=== PATIENT | female | born 1990 | race American Indian/Alaskan Native ===

== ENCOUNTER 2018-09-17 10:41 | Emergency (ER) | payer MEDICAID ==
[2017-12-04 14:50] VITALS: BMI 26.6
--- NOTE | 2018-09-17 12:00 | OBHP ---
Datetime: 09/17/2018 11:43 IP Adm Impression: , intrauterine IP Admit Plan: Discharge home Admit Comment, IP Provider: HPI: Gianna is a 28 year old at 34.2 weeks here for complaint s of 2 episodes of fluid leaking from the vagina over the last 2 weeks as well as 2 months of mild, c onsistent lower pelvic pain. Patient reports noticing her underwear felt wet after sitting down twice in the last 2 weeks, denies gushes of fluid or fluid leaking down her legs. No vaginal bleeding or c ontractions. Denies any complications with this . History 1 previous at term, no complications PMH Mild intermittent asthma PSH Exploratory laparoscopy Medications Albuterol PRN PNV Allergies NKDA Social Denies tobacco, alcohol or drug use during this Family History Not significant OBJECTIVE Vitals reviewed ASSESSMENT/PLAN: 28 year old at 34.2 here for rule out PROM. SSE was unremarkable with no evidence of membranes rupture. Cervical os appeared closed on exam. NST was reactive. Patient is andi red for discharge at this time. She has follow-up next week with Dr. Kerr. Return precautions dis cussed. Patient in agreement with discharge plan. Britney Reinoso MD OB Fellow OB Hospitalist Addendum: Pt seen by me. Agree w/ above. 28 yo at 34+2 wks w/ c/o leaking of fluid. On exam: pt appears comfortable lying in stretcher. Spec: white d/c, nitrazine negative. NST reactive. Pt discharged home w/ PTL precautions. Pt to f/u w/ Dr. Garcia in 2-3 days. (ES) Lungs - PN: Normal Heart - PN: Normal Neurologic - PN: Normal HEENT - PN: Normal IP Fetus A Comments: Reactive NST FHR - Baseline A Provider: 130 Comments, ACOG Physical Exam: SSE: cervical os closed on visual inspection, no pooling or leaking of fluid on Valsalva. Nitrazine neg Gestation - Est Wks by US: 34.2 EGA AdmitDate IP: 34.2 Vital Signs Provider: Reviewed; Within Normal Limits IP Chief Complaint: Suspected ruptured membranes NICHD Variability Prov Fetus A: Moderate 6-25bpm NICHD Accel Fetus A IP Provider: [id number] NICHD Decel Fetus A IP Provider: None Genitourinary Exam: Normal
--- NOTE | 2018-09-17 12:01 | OBDCSUM ---
Datetime: 09/17/2018 11:54 Discharged to, Provider: Home Follow up at, Provider: HATCHERY WORKER Disch Instr Activity: Normal activity Disch Instr Diet: Regular Discharge Diagnosis, Provider: False Labor - Undelivered Discharge Time: 09/17/2018 11:58 Follow up in weeks, Provider: as per schedule Disch Referrals: None Disch Activity Restrictions: No exercising; No lifting; No driving; Minimize walking; Minimize stair -climbing; No sexual activity; Nothing in vagina - [place], tampons, douche
[2018-09-17 16:34] VITALS: BP 112/60; PULSE 62; RESP 18; TEMP 98
== END 2018-09-17 11:50 | disposition home or self-care (01) ==
LOC: H.EROB2 10:41 → H.EROB 11:28 → H.EROB2 11:50
DX: O47.03 False labor before 37 completed weeks of gestation, third trimester (principal); Z3A.34 34 weeks gestation of pregnancy; O34.63 Maternal care for abnormality of vagina, third trimester; N89.8 Other specified noninflammatory disorders of vagina; O26.93 Pregnancy related conditions, unspecified, third trimester; R10.2 Pelvic and perineal pain

== ENCOUNTER 2018-10-20 12:28 | Emergency (ER) | payer MEDICAID ==
[2017-12-04 14:50] VITALS: BMI 26.6
[2018-10-20 18:16] VITALS: BP 109/58; PULSE 66
== END 2018-10-20 14:14 | disposition home or self-care (01) ==
LOC: H.EROB2 12:28
DX: O26.93 Pregnancy related conditions, unspecified, third trimester (principal); R51 Headache; H53.9 Unspecified visual disturbance; Z3A.39 39 weeks gestation of pregnancy; Z23 Encounter for immunization

== ENCOUNTER 2018-10-29 18:55 | Inpatient (IN) | payer MEDICAID ==
[2018-10-29 20:06] VITALS: BMI 30.3
[2018-10-29] MEDS ORDERED: Lactated Ringer's 1,000 ML IV ONE (20:23)
[2018-10-29] MEDS ORDERED: Lactated Ringer's 1,000 ML IV SCH (20:30)
[2018-10-29 20:53] VITALS: RESP 20; O2SAT 100
[2018-10-29 21:02] LABS: BASO % 0.6 % (0.0-2.0); EOS % 0.5 % (0.0-4.0); HEMOGLOBIN 10.8 g/dL (12.0-16.0); LYMPH # 2.1 K/uL (1.0-4.3); LYMPH % 28.3 % (20.0-40.0); MEAN CELL VOLUME 93.7 fl (81.0-99.0); MEAN CORPUSCULAR HEMOGLOBIN 30.8 pg (27.0-31.0); MEAN CORPUSCULAR HGB CONC 32.9 g/dL (33.0-37.0); MEAN PLATELET VOLUME 9.2 fl (7.2-11.7); MONO # 0.9 K/uL (0.0-0.8); MONO % 12.3 % (0.0-10.0); NEUT # 4.3 K/uL (1.8-7.0); NEUT % 58.3 % (50.0-75.0); RBC 3.51 Mil/uL (3.80-5.20); RED CELL DISTRIBUTION WIDTH 13.6 % (11.5-14.5); WHITE BLOOD COUNT 7.4 K/uL (4.8-10.8)
[2018-10-30] MEDS ORDERED: Oxytocin 30 UNIT 30 UNITS/500 ML BAG IV ONE ×2 (09:43→13:41)
[2018-10-30] MEDS ORDERED: OXYTOCIN/0.9 % NS 20 UNIT/1,000 ML BAG IV SCH (09:45)
[2018-10-30] MEDS ORDERED: Bupivacaine HCl 0.5% PF (30 ml) Inj ONE ×2 (10:19→13:35)
[2018-10-30] MEDS ORDERED: Fentanyl/Bupivacaine HCl 250 ML EPI ONE (10:41)
[2018-10-30] MEDS ORDERED: Oxytocin 10 Units/ml Inj IM ONE (13:40)
[2018-10-30] MEDS ORDERED: Oxytocin 10 Units/ml Inj ONE (13:42)
[2018-10-30] MEDS ORDERED: Oxycodone/Acetaminophen 5/325 mg Tab PO PRN ×4 (14:09→20:42)
[2018-10-30] MEDS ORDERED: Propofol 10 mg/ml Inj (20 ML) ONE (14:09)
[2018-10-30] MEDS ORDERED: ceFAZolin 2 GM in Sodium Chloride 0.9% 100 ML IVPB ONE (14:12)
[2018-10-30] MEDS ORDERED: Albuterol HFA 90 mcg/actuation (8 g) INH PRN ×2 (14:44→20:42)
--- NOTE | 2018-10-30 15:00 | RAD ---
Date of service: 10/30/2018 HISTORY: c/s COMPARISON: None available. FINDINGS: BOWEL: Normal. No obstruction. No free air. BONES: Normal. OTHER FINDINGS: Right-sided abdomen cut off the edge of the film. IMPRESSION: No active disease.
[2018-10-30] MEDS ORDERED: Lactated Ringer's 1,000 ML IV SCH (20:42)
[2018-10-31 07:01] LABS: HEMOGLOBIN 9.9 g/dL (12.0-16.0); MEAN CELL VOLUME 93.5 fl (81.0-99.0); MEAN CORPUSCULAR HEMOGLOBIN 30.9 pg (27.0-31.0); RBC 3.21 Mil/uL (3.80-5.20); RED CELL DISTRIBUTION WIDTH 13.4 % (11.5-14.5); WHITE BLOOD COUNT 13.3 K/uL (4.8-10.8)
[2018-10-31] MEDS ORDERED: Multivitamin With Minerals Tab PO SCH (09:00)
[2018-10-31] MEDS: Multivitamin With Minerals Tab PO SCH (09:21)
--- NOTE | 2018-10-31 13:20 | OBDS ---
DELIVERY PERSONNEL Delivery Doctor: Brayden Kerr MD Scrub Nurse: Cristal Fermin Putty Maker: Lauren Marcano RN Anesthesiologist: kita MCGRATH Resident: Michell Samuel MD MATERNAL INFORMATION Delivery Anesthesia: Epidural Medications in Delivery: pitlocin and Ancef Estimated Blood Loss (ml): 800 Placenta Cultured: No Maternal Complications: Other RN Comments: Re-occurent variables, lates and prolonged decel of 7 min. Provider Comments: heart tracing with persistent bradycardia. Attempts with intrauterine resu scitation unsuccessful and heart tracing persisted with bradycardia. Patient consented for C-s ection and patient transferred immediately to operating room. Primary low flap transverse section Via Pfannenstiel incision. Patient delivered viable infant female with Apgars of 9 and 9 at 1 and 5 minutes respectively. Cord gases collected. Cord bl ood collected. Normal uterus, normal tubes and ovaries bilaterally. Estimated blood loss 800 cc Fluids 1500 cc lactated Ringer's 400 cc of clear urine at the end of procedure Patient tolerated procedure well Refer to dictation LABOR SUMMARY EDC: 10/27/2018 00:00 No. Babies in Womb: 1 Attempted: No Labor Anesthesia: Epidural LABOR INFORMATION Reason for Induction: Postterm Onset of Labor: 10/30/2018 13:04 Cervical Ripening Agents: Cervidil Oxytocin: N/A Group B Beta Strep: Negative Steroids Given: None Reason Steroids Not Administered: Not Applicable MEMBRANES Membranes Rupture Method: Spontaneous Rupture of Membranes: 10/30/2018 13:00 Length of Rupture (hrs): 0.62 Amniotic Fluid Color: Clear Amniotic Fluid Amount: Scant Amniotic Fluid Odor: None STAGES OF LABOR Stage 3 hrs: 0 Stage 3 min: 0 Total Time in Labor hrs: 0 Total Time in Labor min: 33 CSECTION DELIVERY Primary Indication: Nonreassuring Status Secondary Indication: Primary C section CSection Urgency: Emergency CSection Incidence: Primary Labor: Labor Elective: Elective CSection Incision: Lower Uterine Transverse BABY A INFORMATION Delivery Date/Time: 10/30/2018 13:37 Method of Delivery: Born in Route : Yes : N/A Forceps: N/A Vacuum Extraction: N/A Shoulder Dystocia : No SHOULDER DYSTOCIA BABY A Delivery Date/Time: 10/30/2018 13:37 PRESENTATION/POSITION BABY A Presentation: Cephalic Cephalic Presentation: Vertex Breech Presentation: N/A PLACENTA INFORMATION BABY A Placenta Delivery Time : 10/30/2018 13:37 Placenta Method of Delivery: Expressed Placenta Status: Delivered SCORES BABY A Heart Rate 1 min: >100 bpm Resp Effort 1 min: Good Cry Reflex Irritability 1 min: Cough or Sneeze or Pulls Away Muscle Tone 1 min: Active Motion Color 1 min: Body [place], Extremities Blue Resuscitation Effort 1 min: N/A SCORE 1 MIN: 9 Heart Rate 5 min: >100 bpm Resp Effort 5 min: Good Cry Reflex Irritability 5 min: Cough or Sneeze or Pulls Away Muscle Tone 5 min: Active Motion Color 5 min: Body [place], Extremities Blue Resuscitation Effort 5 min: N/A SCORE 5 MIN: 9 INFORMATION BABY A Gestational Age at Delivery: 40.3 Gestational Status: Term Infant Outcome : Liveborn Condition : Stable Sex: Female IDENTIFICATION/MEDS BABY A ID Band Number: [id number] ID Band Location: Left Leg; Left Arm WEIGHT/LENGTH BABY A Infant Birthweight (gms): 3045 Infant Weight (lb): 6 Infant Weight (oz): 11 CORD INFORMATION BABY A No. Cord Vessels: 3 Nuchal Cord : N/A Infant Cord pH Baby Arterial: 04.03 Cord Blood Taken: Yes Suction: None ASSESSMENT BABY A Complications: Extended Bradycardia; Multiple Variable Decels Physical Findings at Delivery: Within Normal Limits Respirations: Appears Normal Palliative Care Nurse Practitioner/ALS Called : No Care By: Dr Felix and Nursery RN Transferred To: Remains with Mother
--- NOTE | 2018-10-31 13:23 | OBDS ---
DELIVERY PERSONNEL Delivery Doctor: Brayden Kerr MD Scrub Nurse: Cristal Fermin Supervisor Mirror Fabrication: Lauren Marcano RN Anesthesiologist: kita MCGRATH Resident: Michell Samuel MD MATERNAL INFORMATION Delivery Anesthesia: Epidural Medications in Delivery: pitlocin and Ancef Estimated Blood Loss (ml): 800 Placenta Cultured: No Maternal Complications: Other RN Comments: Re-occurent variables, lates and prolonged decel of 7 min. Provider Comments: heart tracing with persistent bradycardia. Attempts with intrauterine resu scitation unsuccessful and heart tracing persisted with bradycardia. Patient consented for C-s ection and patient transferred immediately to operating room. Primary low flap transverse section Via Pfannenstiel incision. Patient delivered viable infant female with Apgars of 9 and 9 at 1 and 5 minutes respectively. Cord gases collected. Cord bl ood collected. Normal uterus, normal tubes and ovaries bilaterally. Estimated blood loss 800 cc Fluids 1500 cc lactated Ringer's 400 cc of clear urine at the end of procedure Patient tolerated procedure well Refer to dictation LABOR SUMMARY EDC: 10/27/2018 00:00 No. Babies in Womb: 1 Attempted: No Labor Anesthesia: Epidural LABOR INFORMATION Reason for Induction: Postterm Onset of Labor: 10/30/2018 13:04 Cervical Ripening Agents: Cervidil Cervical Ripening Agents: Cervidil Oxytocin: N/A Group B Beta Strep: Negative Steroids Given: None Reason Steroids Not Administered: Not Applicable MEMBRANES Membranes Rupture Method: Spontaneous Membranes Rupture Method: Spontaneous Rupture of Membranes: 10/30/2018 13:00 Rupture of Membranes: 10/30/2018 13:00 Length of Rupture (hrs): 0.62 Length of Rupture (hrs): 0.62 Amniotic Fluid Color: Clear Amniotic Fluid Color: Clear Amniotic Fluid Amount: Scant Amniotic Fluid Amount: Small Amniotic Fluid Odor: None Amniotic Fluid Odor: None STAGES OF LABOR Stage 3 hrs: 0 Stage 3 min: 0 Total Time in Labor hrs: 0 Total Time in Labor min: 33 CSECTION DELIVERY Primary Indication: Nonreassuring Status Secondary Indication: Primary C section CSection Urgency: Emergency CSection Incidence: Primary Labor: Labor Elective: Elective CSection Incision: Lower Uterine Transverse BABY A INFORMATION Infant Delivery Date/Time: 10/30/2018 13:37 Method of Delivery: Born in Route : Yes : N/A Forceps: N/A Vacuum Extraction: N/A Shoulder Dystocia : No SHOULDER DYSTOCIA BABY A Infant Delivery Date/Time: 10/30/2018 13:37 PRESENTATION/POSITION BABY A Presentation: Cephalic Presentation: Cephalic Cephalic Presentation: Vertex Breech Presentation: N/A PLACENTA INFORMATION BABY A Placenta Delivery Time : 10/30/2018 13:37 Placenta Method of Delivery: Expressed Placenta Status: Delivered SCORES BABY A Heart Rate 1 min: >100 bpm Resp Effort 1 min: Good Cry Reflex Irritability 1 min: Cough or Sneeze or Pulls Away Muscle Tone 1 min: Active Motion Color 1 min: Body [place], Extremities Blue Resuscitation Effort 1 min: N/A SCORE 1 MIN: 9 Heart Rate 5 min: >100 bpm Resp Effort 5 min: Good Cry Reflex Irritability 5 min: Cough or Sneeze or Pulls Away Muscle Tone 5 min: Active Motion Color 5 min: Body [place], Extremities Blue Resuscitation Effort 5 min: N/A SCORE 5 MIN: 9 INFANT INFORMATION BABY A Gestational Age at Delivery: 40.3 Gestational Status: Term Outcome : Liveborn Condition : Stable Infant Sex: Female IDENTIFICATION/MEDS BABY A ID Band Number: [id number] ID Band Location: Left Leg; Left Arm WEIGHT/LENGTH BABY A Infant Birthweight (gms): 3045 Weight (lb): 6 Infant Weight (oz): 11 CORD INFORMATION BABY A No. Cord Vessels: 3 Nuchal Cord : N/A Infant Cord pH Baby Arterial: 7 Cord Blood Taken: Yes Infant Suction: None ASSESSMENT BABY A Complications: Extended Bradycardia; Multiple Variable Decels Physical Findings at Delivery: Within Normal Limits Infant Respirations: Appears Normal Grain Ii Farmworker/ALS Called : No Infant Care By: Dr Felix and Nursery RN Transferred To: Remains with Mother
--- NOTE | 2018-10-31 13:25 | OBPPN ---
Datetime: 10/31/2018 13:22 PP Pain Prov: Within normal limits PP Nausea Prov: Denies PP Flatus Prov: Yes PP BM Prov: No PP Breasts Prov: Normal PP Heart Prov: Normal PP Lungs Prov: Normal PP Abdomen/Uterus Prov: Normal PP Lochia Prov: Normal PP Vulva/Perineum Prov: Normal PP CVA Tenderness Prov: Normal PP Extremities Prov: Normal PP C/S Incision Prov: Normal PP Progress Prov: Not Applicable PP Comments Phys Exam Prov: Abdomen soft, nontender, nondistended Incision clean, dry, intact Uterus firm, below umbilicus No deep calf tenderness bilaterally PP Impression Prov: Normal progression PP Plan Prov: Continue present management PP Progress Note Prov: Postop day #1 status post primary , patient recovering well Pain control Patient out of bed and ambulating [place] out, void check Postop CBC Regular diet IP PP Procedures: None Vital Signs Provider PP: Reviewed; Within Normal Limits
--- NOTE | 2018-10-31 22:31 | OP ---
PROCEDURE DATE: 10/30/2018 PREOPERATIVE DIAGNOSIS: Persistent bradycardia. POSTOPERATIVE DIAGNOSIS: Persistent bradycardia. OPERATION PERFORMED: Primary low flap transverse section via Pfannenstiel incision. SURGEON: Jesus Kerr MD SLASHER: Dr. Britney Reinoso. ANESTHESIA: Epidural. ANESTHESIOLOGIST: Dr. Singleton. OPERATIVE FINDINGS: Viable infant female with Apgars of 9 and 9 at 1 and 5 minutes respectively, normal uterus, normal tubes and ovaries bilaterally. ESTIMATED BLOOD LOSS: 800 mL. IV FLUID INTAKE: 1500 mL of lactated Ringer's. URINE OUTPUT: 400 mL of clear urine at the end of procedure. DESCRIPTION OF PROCEDURE: The patient was taken to the operating room where epidural anesthesia was found to be adequate. The patient was prepped and draped in a normal sterile fashion in the dorsal supine position with a leftward tilt. A Pfannenstiel skin incision was made with a scalpel. This was carried down through to the underlying layer of fascia with the scalpel. Midline defect was made in the fascial layer with the scalpel. The fascial incision was extended bilaterally with curved Sears scissors. The fascial layer was from the underlying rectus muscles both bluntly and sharply with curved Sears scissors. The rectus muscles were at the midline. The peritoneum was then identified, tented up with Nikki clamps x2, and entered sharply with Metzenbaum scissors. This peritoneal incision was then extended superiorly and inferiorly with good visualization of the urinary bladder. A bladder blade was inserted into the abdomen. The vesicouterine peritoneum was then identified, tented up with Nikki clamps x2, and entered sharply with Metzenbaum scissors. This peritoneal incision was then extended bilaterally with Metzenbaum scissors. The bladder flap was created digitally. The Pablo retractors were placed over the urinary bladder. The uterus was incised with the scalpel. The uterine incision was extended bilaterally bluntly. The 's head was delivered atraumatically. Nose and mouth were suctioned with bulb suction. The remainder of the was delivered without complication. The cord was clamped and cut. The was handed off to awaiting pediatricians. Cord gases were collected. Cord blood was collected. The placenta was removed manually. The uterus was cleared of all clots and debris. The uterine incision was repaired with 0 Vicryl in a running, locked fashion. A second layer of the same suture was used to imbricate the first and to obtain excellent hemostasis. Re-inspection of the uterine incision proved excellent hemostasis. The abdomen and pelvis were irrigated with copious amounts of warm normal saline. Re-inspection of the uterine incision proved excellent hemostasis. All instruments were removed from the patient. The peritoneal layer was closed with a running stitch of 2-0 chromic. The rectus muscles were reapproximated with a running stitch of 2-0 chromic. The fascial layer was closed with a running stitch of 0 Vicryl. Subcutaneous tissue was closed with a running stitch of 2-0 plain. The skin was closed with subcutaneous stitch of 3-0 Vicryl. The patient tolerated the procedure well. All sponge count, lap count, and needle counts were correct x2. The patient was given 2 g of Ancef just prior to the beginning of the procedure. There were no complications. The patient was taken to the recovery room in awake and stable condition. Jesus Kerr MD
--- NOTE | 2018-11-01 07:49 | OBPPN ---
Datetime: 11/01/2018 07:42 PP Pain Prov: Within normal limits PP Nausea Prov: Denies PP Flatus Prov: Yes PP BM Prov: No PP Abdomen/Uterus Prov: Normal PP Lochia Prov: Normal PP Extremities Prov: Normal PP C/S Incision Prov: Normal PP Impression Prov: Normal progression PP Progress Note Prov: POD 2 s/p c/s for bradycardia Rx's motrin, percocet, and Slow fe given Pt would like to be discharged home today Vital Signs Provider PP: Reviewed; Within Normal Limits
[2018-11-01] MEDS: Multivitamin With Minerals Tab PO SCH (08:12)
--- NOTE | 2018-11-01 08:36 | OBDCSUM ---
Datetime: 11/01/2018 08:35 Discharged to, Provider: Home Follow up at, Provider: Ingris Disch Instr Activity: Normal activity; May Shower Disch Instr Diet: Regular Discharge Instructions, Provider: Routine instructions given Discharge Time: 11/01/2018 08:35 Follow up in weeks, Provider: 1 week Contraception discussed, Prov: No Disch Activity Restrictions: No exercising; No lifting; No driving; No sexual activity; Nothing in v agina - [place], tampons, douche
[2018-11-01 18:39] VITALS: BP 115/67; PULSE 72; TEMP 97.9
== END 2018-11-01 12:10 | disposition home or self-care (01) | DRG 371 ==
LOC: H.L&D 20:23 → H.OB/GYN 10-30 20:00
PROVIDERS: ADMIT Obstetrics & Gynecology Gynecology; ATTEND Obstetrics & Gynecology Gynecology
PROC: 4A1HXCZ Monitoring of Products of Conception, Cardiac Rate, External Approach (ICD-10-PCS; 2018-10-29)
PROC: 10D00Z1 Extraction of Products of Conception, Low, Open Approach (ICD-10-PCS; principal; 2018-10-30)
DX: O76 Abnormality in fetal heart rate and rhythm complicating labor and delivery (principal); O48.0 Post-term pregnancy; Z3A.40 40 weeks gestation of pregnancy; Z37.0 Single live birth